=== PATIENT | female | born 1980 | race Hispanic/Latino ===

== ENCOUNTER 2016-10-27 21:30 | Emergency (ER) | payer MEDICARE, MEDICAID ==
[~2016-10-27] VITALS: Ht 172.7 cm; Wt 77.2 kg
[2016-10-27] MEDS ORDERED: HYDROCORTISONE LEFT EAR ONE (22:50)
[2016-10-27] MEDS ORDERED: POLYMYXIN LEFT EAR ONE (22:50)
[2016-10-27] MEDS ORDERED: [UNRECOGNIZED DRUG - OTHER] LEFT EAR ONE (22:50)
[2016-10-27] MEDS ORDERED: ACETAMINOPHEN 500 MG TAB (TYLENOL) PO ONE (22:50)
[2016-10-27 23:03] VITALS: BP 110/68
== END 2016-10-27 23:05 | disposition home or self-care (01) ==
LOC: ED 21:37
DX: S06.0X0A Concussion without loss of consciousness, initial encounter (principal); T70.0XXA Otitic barotrauma, initial encounter; Y04.2XXA Assault by strike against or bumped into by another person, initial encounter
CPT/HCPCS: 99282; A9270